=== PATIENT | female | born 2005 | race Hispanic/Latino ===

== ENCOUNTER 2023-09-17 11:32 | Inpatient (IN) | payer OTHER ==
[~2023-09-17] VITALS: Ht 154.9 cm; Wt 83.9 kg
[2023-09-17] MEDS ORDERED: ONDANSETRON HCL INJ 2MG/ML 2ML 2 MG/ML VIAL IV STA (12:02)
[2023-09-17] MEDS ORDERED: ONDANSETRON HCL INJ 2MG/ML 2ML 2 MG/ML VIAL ONE (12:10)
[2023-09-17] MEDS ORDERED: SODIUM CHLORIDE 0.9% 1000ML 1,000 ML ONE (12:10)
[2023-09-17] MEDS ORDERED: SODIUM CHLORIDE 0.9% 1000ML 1,000 ML IV SCH ×2 (12:15→16:15)
[2023-09-17] MEDS ORDERED: IOPAMIDOL 370 MG/ML 100 ML INFUS..BTL INJ ONE (12:53)
[2023-09-17] MEDS ORDERED: PIPERACILLIN/TAZOBACTAM 3.375 GM VIAL ONE (13:55)
[2023-09-17] MEDS ORDERED: SODIUM CHLORIDE 0.9% 100 ML ONE (13:55)
[2023-09-17] MEDS ORDERED: KETOROLAC TROMETHAMINE 30 MG/ML VIAL IV PRN (14:15)
[2023-09-17] MEDS ORDERED: ONDANSETRON HCL INJ 2MG/ML 2ML 2 MG/ML VIAL IV PRN ×2 (14:15→18:00)
[2023-09-17] MEDS ORDERED: ACETAMINOPHEN 325 MG TAB ONE (16:15)
[2023-09-17] MEDS ORDERED: ACETAMINOPHEN 325 MG TAB PO ONE (16:15)
[2023-09-17] MEDS: SODIUM CHLORIDE 0.9% 1000ML 1,000 ML IV SCH ×2 (16:22→17:16)
[2023-09-17 18:00] VITALS: BP 132/88; PULSE 126; RESP 18; O2SAT 99
[2023-09-17] MEDS ORDERED: ACETAMINOPHEN 325 MG TAB PO PRN (18:00)
[2023-09-17] MEDS ORDERED: DOCUSATE SODIUM 100 MG CAP PO PRN (18:00)
[2023-09-17] MEDS ORDERED: SIMETHICONE 80 MG CHEW PO PRN (18:00)
[2023-09-17] MEDS ORDERED: MELATONIN 3 MG TAB PO PRN (18:00)
[2023-09-17] MEDS ORDERED: ALBUTEROL/IPRATROPIUM 3 ML NEB NEB PRN (18:00)
[2023-09-17 18:56] LABS: CHOL/HDL RATIO 3.3 (3.0-3.6)
[2023-09-17 20:46] VITALS: BP 114/80; PULSE 114; RESP 18; TEMP 100.8; O2SAT 100
[2023-09-17 20:47] VITALS: BP 114/80; PULSE 114; RESP 18; TEMP 100.8; O2SAT 100
[2023-09-18] MEDS: SODIUM CHLORIDE 0.9% 1000ML 1,000 ML IV SCH ×2 (01:20→09:22)
[2023-09-18 04:05] VITALS: BP 108/69; PULSE 76; RESP 18; TEMP 98.9; O2SAT 100
[2023-09-18 06:10] LABS: ANION GAP 11.1 mmol/L (8-16); BASOPHILS % 0.1 % (0.0-1.0); CREATININE, SERUM 0.76 mg/dL (0.57-1.11); EOSINOPHILS % 0.4 % (0.0-6.0); HEMATOCRIT 33.2 % (34.2-44.1); HEMOGLOBIN 11.1 g/dL (12.0-16.0); LYMPHOCYTES % 28.5 % (18.0-39.1); MEAN CORPUSCULAR HGB CONC 33.4 g/dL (31-35); MEAN CORPUSCULAR VOLUME 83.6 fL (81-99); MONOCYTES # (AUTO) 0.7 (0.2-0.8); MONOCYTES % 9.6 % (4.4-11.3); NEUTROPHILS # (AUTO) 4.4 (2.1-6.9); NEUTROPHILS % 61.1 % (38.7-80.0); PLATELET COUNT 213 x10e3/uL (140-360); POTASSIUM 3.1 mmol/L (3.5-5.1); RED BLOOD COUNT 3.97 x10e6/uL (3.6-5.1); RED CELL DISTRIBUTION WIDTH 13.3 % (11.7-14.4); WHITE BLOOD COUNT 7.12 x10e3/uL (4.8-10.8)
[2023-09-18 06:26] LABS: ALBUMIN 3.5 g/dL (3.5-5.0); ALBUMIN/GLOBULIN RATIO 1.5 (0.8-2.0)
[2023-09-18] MEDS ORDERED: FAMOTIDINE 20 MG/2 ML VIAL IV SCH ×2 (09:00)
[2023-09-18 09:20] VITALS: BP 109/69; PULSE 81; RESP 19; TEMP 98.7; O2SAT 99
[2023-09-18 09:32] VITALS: BP 109/69; PULSE 81; RESP 19; TEMP 98.7; O2SAT 99
[2023-09-18] MEDS ORDERED: ONDANSETRON HCL 4 MG ORAL DISINTEGRATING TAB PO PRN (11:15)
[2023-09-18] MEDS ORDERED: POTASSIUM CHLORIDE 20 MEQ TAB CR PO ONE (12:00)
[2023-09-18 12:19] VITALS: BP 110/69; PULSE 68; RESP 19; TEMP 97.7; O2SAT 100
[2023-09-18] MEDS ORDERED: CIPRO500 MG PO (14:54)
[2023-09-18 16:00] VITALS: BP 117/69; PULSE 70; RESP 19; TEMP 98.6; O2SAT 100
[2023-09-18] MEDS ORDERED: FAMOTIDINE 20 MG TAB PO SCH (21:00)
== END 2023-09-18 15:39 | disposition home or self-care (01) | DRG 761 ==
LOC: FSED 11:39 → ERHOLD 14:11 → MED/SURG 16:58
PROVIDERS: ADMIT Internal Medicine; ATTEND Internal Medicine
DX: N94.89 Other specified conditions associated with female genital organs and menstrual cycle (principal); K52.9 Noninfective gastroenteritis and colitis, unspecified; E66.9 Obesity, unspecified; Z68.35 Body mass index [BMI] 35.0-35.9, adult
CPT/HCPCS: 36415; 74177; 76830; 76856; 80048; 80053; 80061; 80076; 81003; 81025; 83036; 85025; 96374; 99284; J2405; J2543; J7030; J7050; Q9967